=== PATIENT | female | born 1975 | race Caucasian/White ===

== ENCOUNTER 2017-08-24 11:26 | Emergency (ER) | payer OTHER ==
[~2017-08-24 11:26] MED LIST: CYCL10TA29 PO; DICY-42 PO; DOCU-416 PO; HYDR-6016 PO; HYDR2TAB74 PO; IBUP800T37 PO; MULT1CAP59 PO; NALO12.5 PO; NAPR500T75 PO; OMEG500C5 PO; TOPI-119 PO; TOPI-120 PO
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
[2017-08-24] MEDS ORDERED: KETOROLAC 60 MG/2 ML VIAL IM ONE (11:45)
[2017-08-24] MEDS ORDERED: IBUPROFEN 800 MG TAB PO ONE ×2 (11:50)
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
[2017-08-24 13:14] VITALS: BP 100/47
== END 2017-08-24 13:19 | disposition home or self-care (01) ==
LOC: ER 11:34
DX: S39.012A Strain of muscle, fascia and tendon of lower back, initial encounter (principal)
CPT/HCPCS: 72100; 99283

== ENCOUNTER → 2018-05-13 | Outpatient (REF) | payer OTHER ==
[~2018-05-13] MED LIST changes: +CALC500T6 PO; +CHOL10005 PO; +MULT1TAB54 PO; +OMEG-11 PO
[2018-05-13 11:08] LABS: PLATELET COUNT, AUTOMATED 319 K/uL (150-450)
== END ==
LOC: ZZSTITCHES 10:57
PROVIDERS: ATTEND Physician Assistant
DX: R00.0 Tachycardia, unspecified (principal); R07.89 Other chest pain
CPT/HCPCS: 82040; 82247; 82310; 82374; 82435; 82565; 82947; 84075; 84132; 84155; 84295; 84450; 84460; 84520; 85025; 85379